=== PATIENT | male | born 1955 | race Caucasian/White ===

== ENCOUNTER → 2018-08-10 13:27 | Outpatient (CLI) | payer BC, SELFPAY ==
--- NOTE | 2018-08-10 | NVE_ITS ---
Venous Exam Indications: 729.81 Swelling of limb. IMPRESSIONS 1. There is no evidence of significant Reflux. 2. No evidence of deep or superficial vein thrombosis involving the left lower extremity History: Edema of the left leg. Risk factors: Hypertension. Left lower extremity venous duplex evaluation. Doppler flow study including spectral analysis, color and silverio scale imaging. Location: Vascular laboratory. Patient status: Outpatient. Tables: Venous flow and imaging: + +-------+ + Location Overall Flow properties + +-------+ + Left common femoral Patent Normal phasicity; spontaneous; normal augmentation; compressible + +-------+ + Left saphenofemoral junction Patent Compressible + +-------+ + Left profunda femoral Patent Compressible + +-------+ + Left femoral Patent Normal phasicity; spontaneous; normal augmentation; compressible + +-------+ + Left greater saphenous Patent Normal phasicity; spontaneous; normal augmentation; compressible + +-------+ + Left popliteal Patent Normal phasicity; spontaneous; normal augmentation; compressible + +-------+ + Left posterior tibial Patent Compressible + +-------+ + Left peroneal Patent Compressible + +-------+ + Left gastrocnemius Patent Compressible + +-------+ + Left soleal Patent Compressible + +-------+ + (Report amended ) Electronically signed by: Jose Kwok [id number]
== END ==
PROVIDERS: PCP Internal Medicine Adolescent Medicine; Visit Provider Internal Medicine Adolescent Medicine
DX: R60.0 Localized edema (principal); M79.662 Pain in left lower leg
CPT/HCPCS: 93971

== ENCOUNTER → 2020-09-05 11:09 | Outpatient (CLI) | payer MEDICARE, OTHER, SELFPAY ==
--- NOTE | 2020-09-05 | XR_ITS ---
PROCEDURE: XR HIP RT 2-3V W/PELVIS CLINICAL INDICATION: RT HIP PAIN COMPARISON: No exams were available for comparison FINDINGS: There are severe osteoarthritic changes of the right hip with dysplastic changes of the right femoral head with flattening of the right femoral head. Subchondral cystic changes are present involving the femoral head. There is minimal lateral displacement of the femur. Prominent osteophytes are present involving the acetabulum inferiorly. IMPRESSION: Severe osteoarthritis of the right hip with dysplastic changes and subchondral cystic changes of the right femoral head Dictated by: Jose Kwok MD 09/05/2020 13:44 oJse Kwok MD in [facility] 09/05/2020 13:44
--- NOTE | 2020-09-05 | XR_ITS ---
PROCEDURE: XR HIP LT 2-3V W/PELVIS CLINICAL INDICATION: RT HIP PAIN Hip pain COMPARISON: No exams were available for comparison FINDINGS: Prior left hip hemiarthroplasty placement. There are severe osteoarthritic changes of the right hip. Left hip prosthesis is in good position. IMPRESSION: 1. Left hip hemiarthroplasty in good position. 2. Severe osteoarthritis of the right hip as described in the right Dictated by: Jose Kwok MD 09/05/2020 13:45 Jose Kwok MD in [facility] 09/05/2020 13:45
--- NOTE | 2020-09-05 | XR_ITS ---
PROCEDURE: XR LUMBAR SPINE MIN 4V CLINICAL INDICATION: RT HIP PAIN COMPARISON: No exams were available for comparison FINDINGS: There is mild lumbar scoliosis convex left. There is severe multilevel degenerative disc disease. Degenerative disc disease is present T12-S1 with prominent anterior osteophytes. Facet arthritic changes are also present from L2-S1. No acute fracture or dislocation. No lytic or blastic changes. IMPRESSION: Severe degenerative disc disease with mild lumbar scoliosis convex left and facet arthritic change Dictated by: Jose Kwok MD 09/05/2020 13:25 Jose Kwok MD in [facility] 09/05/2020 13:25
== END ==
PROVIDERS: PCP Internal Medicine Adolescent Medicine; Visit Provider Internal Medicine Adolescent Medicine
DX: M25.551 Pain in right hip (principal); M54.5 Low back pain
CPT/HCPCS: 72110; 73502

== ENCOUNTER → 2020-09-23 09:30 | Outpatient (CLI) | payer MEDICARE, OTHER, SELFPAY ==
--- NOTE | 2020-09-23 09:34 | CA_ITS ---
APPROVED REPORT Left Lower Extremity Venous Study for DVT. Senior Business Development Analyst: Shani Mills RVT Indications Lower Extremity Pain: Left Lower Extremity Edema: Left PT HAD LT KNEE REPLACEMENT SEVERAL WKS AGO Risk Factors Post OP Vein Imaging CFV (L): compressive, spontaneous, phasic, augmentation FEM (L): compressive, spontaneous, phasic, augmentation POP (L): compressive, spontaneous, phasic, augmentation PTV (L): Compressible GSV (L): Compressible Peroneals (L):Compressible GAS (L): Compressible Findings Study suggests no evidence of DVT of the left lower extremity. Study suggests no evidence of SVT of the left lower extremity. 1.5 X 1.1 cm probable lymph node seen left groin. Conclusion Study suggests no evidence of DVT of the left lower extremity. Study suggests no evidence of SVT of the left lower extremity. 1.5 X 1.1 cm probable lymph node seen left groin. Electronically signed by : Jose Kwok MD 09/23/2020 15:14:32
== END ==
PROVIDERS: PCP Internal Medicine Adolescent Medicine; Visit Provider Orthopaedic Surgery
DX: R22.42 Localized swelling, mass and lump, left lower limb (principal)
CPT/HCPCS: 93971

== ENCOUNTER → 2020-10-21 13:24 | Outpatient (CLI) | payer MEDICARE, OTHER, SELFPAY ==
--- NOTE | 2020-10-21 | US_ITS ---
APPROVED REPORT Exam Type: Ankle to Brachial Index Awning Hanger Helper: RT Aly(R) Indications Claudication: Bilaterally Rest Pain: Right Current Smoker left foot discoloration that worsened the longer he was supine. Risk Factors Hypertension Hyperlipidemia Current Smoker Pressures/Indices Right Indices Left Indices Brachial 172.00 mmHg Brachial 173.00 mmHg Low Thigh 191.00 mmHg 1.10 Low Thigh 191.00 mmHg 1.10 Calf 204.00 mmHg 1.18 Calf 189.00 mmHg 1.09 Ankle(PT) 206.00 mmHg 1.19 Ankle(PT) 191.00 mmHg 1.10 Ankle(DP) 149.00 mmHg 0.86 Ankle(DP) 183.00 mmHg 1.06 Digit 148.00 mmHg 0.86 Digit 119.00 mmHg 0.69 Findings RT ISELA=1.2 LT ISELA=1.1 RT TBI=0.9 LT TBI=0.7 Normal pulses Normal waveforms Conclusion RT ISLEA=1.2 LT ISELA=1.1 RT TBI=0.9 LT TBI=0.7 Normal pulses Normal waveforms Normal appearing resting noninvasive lower extremity arterial study. Electronically signed by : Jose Kwok MD 10/21/2020 15:50:06
== END ==
PROVIDERS: PCP Internal Medicine Adolescent Medicine; Visit Provider Orthopaedic Surgery
DX: M79.662 Pain in left lower leg (principal); R60.0 Localized edema; I70.213 Atherosclerosis of native arteries of extremities with intermittent claudication, bilateral legs
CPT/HCPCS: 93923; 93924

== ENCOUNTER → 2021-03-18 15:35 | Outpatient (CLI) | payer MEDICARE, OTHER, SELFPAY ==
--- NOTE | 2021-03-18 15:41 | CA_ITS ---
APPROVED REPORT Bilateral Lower Extremity Venous Study for DVT. Napper Grinder: TERRY Indications Post-op hip replacement < 2weeks ago Vein Imaging CFV (R): compressive, spontaneous, phasic, augmentation SFJ (R): compressive, spontaneous, phasic, augmentation FEM (R): compressive, spontaneous, phasic, augmentation POP (R): compressive, spontaneous, phasic, augmentation DFV (R): compressive, spontaneous, phasic, augmentation PTV (R): compressive, spontaneous, phasic, augmentation GSV (R): compressive, spontaneous, phasic, augmentation SSV (R): compressive, spontaneous, phasic, augmentation Peroneals (R):compressive, spontaneous, phasic, augmentation GAS (R): compressive, spontaneous, phasic, augmentation Findings Color flow duplex demonstrates no evidence of DVT of the following right lower extremity Veins:Common Femoral Vein, Femoral Vein, Popliteal Vein, Posterior Tibial Veins, Peroneal Veins, Deep Femoral Vein. Negative for DVT. Conclusion Negative for DVT. Electronically signed by : Jose Kwok MD 03/18/2021 16:36:23
== END ==
PROVIDERS: PCP Internal Medicine Adolescent Medicine; Visit Provider Orthopaedic Surgery
DX: M79.661 Pain in right lower leg (principal)
CPT/HCPCS: 93971

== ENCOUNTER 2023-04-25 17:21 | Emergency (ER) | payer MEDICARE, OTHER, SELFPAY ==
[2023-04-25] VITALS (17 sets, daily range): BP systolic 117–244; BP diastolic 74–128; PULSE 70–99; RESP 12–25; TEMP 36.4–36.9; O2SAT 94–99; BMI 28.8
--- NOTE | 2023-04-25 17:46 | XR_ITS ---
PROCEDURE INFORMATION: Exam: XR Left Scapula Exam date and time: 04/25/2023 6:10 PM Age: 67 years old Clinical indication: Pain; Shoulder; Left; Additional info: Fall TECHNIQUE: Imaging protocol: Radiologic exam of the left scapula. Complete exam. COMPARISON: No relevant prior studies available. FINDINGS: Bones/joints: Anterior shoulder dislocation. No identifiable fracture. Soft tissues: Dystrophic calcifications within the posterior medial soft tissues. IMPRESSION: Anterior shoulder dislocation without identifiable fracture.
--- NOTE | 2023-04-25 17:46 | XR_ITS ---
PROCEDURE INFORMATION: Exam: XR Left Shoulder Exam date and time: 04/25/2023 6:10 PM Age: 67 years old Clinical indication: Pain; Shoulder; Left; Additional info: Fall, severe pain TECHNIQUE: Imaging protocol: Radiologic exam of the left shoulder. Views: 2 or more views. COMPARISON: No relevant prior studies available. FINDINGS: Bones/joints: Anterior shoulder dislocation. No identifiable fracture. Soft tissues: Dystrophic calcifications within the posterior medial soft tissues. IMPRESSION: Anterior shoulder dislocation without identifiable fracture.
--- NOTE | 2023-04-25 17:46 | XR_ITS ---
PROCEDURE INFORMATION: Exam: XR Left Humerus Exam date and time: 04/25/2023 6:10 PM Age: 67 years old Clinical indication: Pain; Shoulder; Left; Additional info: Fall, severe pain TECHNIQUE: Imaging protocol: Radiologic exam of the left humerus. Views: 2 or more views. COMPARISON: No relevant prior studies available. FINDINGS: Bones/joints: Anterior shoulder dislocation. No identifiable fracture. Soft tissues: Dystrophic calcifications within the posterior medial soft tissues. IMPRESSION: Anterior shoulder dislocation without identifiable fracture.
--- NOTE | 2023-04-25 17:48 | HMH.EDGENADL ---
Discharge Plan Disposition Chief Complaint: Extremity Injury, Upper Referrals Follow up/Referrals: Provider,Referral, [Referring] - See instructions Germán Tristan DO [Staff Physician] - See instructions Activity Restrictions/Add. Instructions Additional Instructions/Restrictions: At this time is felt you are safe to be discharged home. If new or worsening symptoms please do not hesitate to return to the emergency department. Please call and schedule an appointment with Dr. Tristan as soon as you are able. Clinical Impressions Clinical Impression: Anterior dislocation of left shoulder, Fall Discharge ED Provider: Wiliam Houser General Adult HPI General Chief complaint: Extremity Injury, Upper Stated complaint: Fall, left shoulder Time Seen by Provider: 04/25/23 17:40 Mode of Arrival: EMS Source of Information: Patient and EMS Limitations: No Limitations Description of Symptoms (Recalled from ER Triage Doc. by RN): pt was moving a tree limb from driveway and slipped on some walnuts and landed on the back of his left shoulder up againist pavement. pt cc is left shoulder pain. per patient he has med hx of depression and MS and drinks 6pack of beer a day here lately due to life stressors History of Present Illness HPI narrative: Patient is a 67-year-old male with no pertinent past medical history presents emergency department for evaluation of traumatic injury sustained in a fall. Patient had a ground-level fall in his driveway striking his left shoulder with severe pain and paresthesias of his left upper extremity. Patient does not take any blood thinners, denies striking his head, loss of consciousness, other traumatic injuries at this time. Patient is left-handed. No other acute complaints. Related Data Allergies Allergy/AdvReac Type Severity Reaction Status Date / Time No Known Allergies Allergy Unverified 06/29/17 14:23 [facility] Disclaimer: The information contained in this section may have been updated after the patient was seen, as this information can be updated by other users. Social History Smoking Status: Former smoker alcohol intake: current current occupational status: other Travel in the last 8 weeks: None ROS Obtained: Yes Systems reviewed as appropriate & no additional complaints except as documented Physical Exam General General appearance: alert and in no apparent distress Head Head exam: atraumatic and normocephalic Eye Eye exam: Present PERRL and EOMI ENT ENT exam: Present mucous membranes moist Neck Neck exam: Present normal inspection Chest Chest inspection: Present normal inspection and symmetric chest wall rise Respiratory Respiratory exam: Present normal lung sounds bilaterally; Absent respiratory distress Cardiovascular Cardiovascular exam: Present regular rate and normal rhythm Abdominal Exam Abdominal exam: Present soft Extremities Exam Extremities exam: Present tenderness (Severe tenderness and limited range of motion at the shoulder secondary to pain. No tenderness over the clavicle.) and other (Left shoulder deformity, decreased sensation throughout the left upper extremity distal to the shoulder. Palpable 2+ radial pulse. Pony Ride Attendant strength 3 out of 5 on the left, 5 out of 5 on the right) Neurological Exam Neurological exam: Present alert Psychiatric Psychiatric exam: Present normal affect Skin Skin exam: Present warm and dry Medical Decision Making Adria Inquiry Pt receiving controlled substance: No Vital Signs: 04/25/23 17:21 04/25/23 17:30 04/25/23 18:01 Temperature 97.6 F Temperature Source Oral Pulse Rate 77 76 Pulse Rate [Right Radial] 71 Respiratory Rate 18 18 Blood Pressure 117/76 139/74 Blood Pressure [Right Arm] 141/86 H Blood Pressure Mean 89 95 Blood Pressure Mean [Right Arm] 104 02 Sat by Pulse Oximetry 97 97 98 Oxygen Delivery Method Room Air 04/25/23 18:31 04/25/23 19:01 04/25/23 19:24 Temperature 98.1
--- NOTE | 2023-04-25 18:52 | ECG_ITS ---
APPROVED REPORT Exam: Resting ECG HR:73 bpm ECG Measurements Heart Rate 73 AXES MI 198 P 65 QRSd 140 QRS 22 QT 434 T 57 QTc 460 Conclusion SINUS RHYTHM WITH OCCASIONAL VENTRICULAR PREMATURE COMPLEXES INTRAVENTRICULAR CONDUCTION DELAY [130+ ms QRS DURATION] POSSIBLE LATERAL MYOCARDIAL INFARCTION , OF INDETERMINATE AGE [30 ms Q WAVE IN I/aVL/V5/V6] PROBABLE INFERIOR MYOCARDIAL INFARCTION , OF INDETERMINATE AGE [35 ms Q WAVE IN II/aVF] ABNORMAL ECG UNCONFIRMED REPORT Electronically signed by : Saeid Duke MD 04/26/2023 17:23:09
--- NOTE | 2023-04-25 19:13 | XR_ITS ---
PROCEDURE INFORMATION: Exam: XR Left Shoulder Exam date and time: 04/25/2023 7:48 PM Age: 67 years old Clinical indication: Injury or trauma; Fall; Dislocation; Severity not specified; Humerus, proximal end; Left; Additional info: Reduction TECHNIQUE: Imaging protocol: Radiologic exam of the left shoulder. Views: 2 or more views. COMPARISON: CR XR SHOULDER LT MIN 2V 04/25/2023 6:10 PM FINDINGS: Bones/joints: Interval reduction of a previous anterior shoulder dislocation. High-riding humeral head likely indicative of underlying rotator cuff pathology. Soft tissues: Normal. IMPRESSION: 1. Interval reduction of a previous anterior shoulder dislocation. 2. High-riding humeral head likely indicative of underlying rotator cuff pathology.
--- NOTE | 2023-04-25 20:12 | PC.NURSE ---
time out was 1924 with Mic RN, Bel RN and , pt was ASA 2 100mg IV push by at 192 ER MD put shoulder in place at 1929 1930 xray at bedside to confirm placement 1934 ER MD confirmed proper allignment and shoulder immobilzer placed stop time 1934 see chart for vitals trend
== END 2023-04-25 20:36 | disposition home or self-care (01) ==
PROVIDERS: Emergency Provider Emergency Medicine; PCP Internal Medicine Adolescent Medicine
DX: S43.015A Anterior dislocation of left humerus, initial encounter (principal); R94.31 Abnormal electrocardiogram [ECG] [EKG]; Z87.891 Personal history of nicotine dependence; W18.30XA Fall on same level, unspecified, initial encounter
CPT/HCPCS: 73010; 73030; 73060; 93005; 96374; 96375; 99284; J0131

== ENCOUNTER 2024-04-13 14:00 | Outpatient (RCR) | payer MEDICARE, OTHER, SELFPAY | END 2024-04-13 23:59 | disposition home or self-care (01) | LOC: PT 14:00 | PROVIDERS: Visit Provider Psychiatry & Neurology Neurology | DX: G35 Multiple sclerosis (principal) | CPT/HCPCS: 97113; 97163; 97164; 97530 ==